=== PATIENT | male | born 1970 | race American Indian/Alaskan Native ===

== ENCOUNTER 2016-04-14 21:18 | Emergency (ER) | payer OTHER ==
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
[2016-04-14] MEDS ORDERED: NORCO 5/325 PO ONE (22:43)
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
[2016-04-15 00:25] VITALS: BP 166/94
== END 2016-04-14 23:46 | disposition home or self-care (01) ==
LOC: ED 21:18
DX: M79.1 Myalgia (principal); V49.9XXA Car occupant (driver) (passenger) injured in unspecified traffic accident, initial encounter; Y93.89 Activity, other specified; Y99.9 Unspecified external cause status; Y92.410 Unspecified street and highway as the place of occurrence of the external cause
CPT/HCPCS: 72040; 72080